=== PATIENT | male | born 1965 | race Caucasian/White ===

== ENCOUNTER 2023-08-18 10:00 | Outpatient (RCR) | payer OTHER, SELFPAY ==
--- NOTE | 2023-07-25 13:45 | HP.PTEVAL ---
Patient's Visit Information Visit Information Visit Information: ABDELRAHMAN SANCHEZ is a 58 year old M referred to Physical Therapy by Dr. Elia Lemos MD with a diagnosis of R glute pain. Date of Evaluation: 07/25/23 Physical Therapist: Gaston Arellano, PT, ATC Visit Plan Frequency: 2-3x /Week Duration: 4-6 Weeks Plan: Re-assess benefit of REIL. Core stab ex's and R LE stretching, postural edu, and HEP Subjective Subjective: Pt reports he has had a significant pain in his R glute region for approximately 1 1/2 years. Pt reports he has been trying to tolerate the pain, but it keeps getting worse. Pt reports he has had PT for this in the past which helped some, but never fixed him. 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 Pt reports he is constantly bending and twisting at work, and this is what causes him the most pain. Pt reports he had an MRI which revealed spinal stenosis and some herniated discs. Pt reports he has intermittent R LE tingling that extends all the way to his foot. Pt reports the only thing that helps is for him to sit and rest. Pt reports there have been some days that his pain is so bad that he has to go home and just rest. No PMHx of R glute pain prior to this episode. 1/10 pain while sitting here at rest, 10/10 pain when his pain is at its worst. Pt reports sleep difficulty secondary to pain. Pain R glute pain: Pain Intensity (Out of 10): 1 Pain Intensity Range: 10 Objective Objective: Neuro: B LE sensation is WNL to light touch. B patellar reflex= 2/3 MMT: B LE's are grossly 5/5 throughout L/S ROM: Pt is moderately to severely limited in all planes. Repeated movements: REIL 10x2 decreased pain. Special testing: pos piriformis and HS tightness. Balance/Special Test Scores Lower Extremity Functional Score: 32 Goals Goal 1:: Decrease LBP x 50% to aid with sleep Goal Time Frame: 4-6 Weeks Goal 2:: Decrease the frequency and intensity of R LE radiculopathy x 50% to aid with work tolerance Goal Time Frame: 4-6 Weeks Goal 3:: I with HEP Goal Time Frame: 4-6 Weeks Rehabilitation Potential Physical Therapy Diagnosis: Pt has R glute pain, R LE radiculopathy, and limited spinal ROM secondary to L/S disc derrangement Rehabilitation Potential: Good Anticipated Interventions Patient/Client Instruction: Educate patient on: Condition and Plan of Care For the Purpose of:: To improve self management Therapeutic Exercise to Include: Strength training, Body mechanics, Postural training, Dynamic Lumbar Stabilization and Alfreda Exercises For the Purpose of:: To decrease pain, To increase ROM and To improve muscle performance and motor function Text: Thank you for the opportunity to evaluate your patient. For Medicare and Medicare HMO plans, please review the plan of care and approve it. It will need to be FAXED BACK to us at [phone] for Medicare purposes. For Medicare only, by signing this I certify the plan of care. Please let me know if there are questions or concerns regarding this plan of care. Physician Signature: Date:
--- NOTE | 2023-11-30 15:55 | HP.PTDCSUM ---
Discharge Summary D/C summary: It has been my pleasure to treat ABDELRAHMAN SANCHEZ referred by Dr. Elia Lemos MD, with the diagnosis of R glute pain for a total of 5 visit(s). Discharge Date: Please see the following information for a summary of their discharge status. Subjective Subjective: Pt reports no improvements at this time. Pt notes his pain is severe after standing for an hour. Pain R glute pain: Pain Intensity (Out of 10): 2 Overall Improvement % Improvement: 0 Objective Objective/Function: LBP ranges from 2-10/10 and still prevents him from sleeping R LE radiculopathy has remained relatively unchanged. Pt is I with HEP Goals Goal 1:: Decrease LBP x 50% to aid with sleep Goal Progress: Not Progressing Goal 2:: Decrease the frequency and intensity of R LE radiculopathy x 50% to aid with work tolerance Goal Progress: Not Progressing Goal 3:: I with HEP Goal Progress: Goal Met Plan Plan: Hold PT at this time secondary to lack of progress. RTD D/C Information d/c sentence: If there are questions or concerns regarding this patient's physical therapy, please feel free to call me at [phone]. Thank you for the referral of this patient. Sincerely, Gaston Arellano, PT, ATC Balance/Gait/Functional tests Balance/Special Test Scores Lower Extremity Functional Score: 32 Improvement % Improvement: 0
--- NOTE | 2023-11-30 15:55 | HP.PT.NRP ---
Patient Information Patient Information: ABDELRAHMAN SANCHEZ was seen in my office for initial evaluation on 07/25/23. The following Plan of Care was established for this patient: POC Established Initial Frequency: 2-3x /Week Initial Duration: 4-6 Weeks Anticipated Interventions Patient/Client Instruction: Educate patient on: Condition and Plan of Care For the Purpose of:: To improve self management Therapeutic Exercise to Include: Strength training, Body mechanics, Postural training, Dynamic Lumbar Stabilization and Alfreda Exercises For the Purpose of:: To decrease pain, To increase ROM and To improve muscle performance and motor function Last Seen Last Seen: This patient was last seen in our office . Pertinent comments regarding their Physical therapy will appear below: At this point I will be discontinuing this patient from physical therapy. I would be happy to see this patient again in the future if found appropriate by the physician. Thank you! Gaston Arellano, PT, ATC Balance/Gait/Functional tests Balance/Special Test Scores Lower Extremity Functional Score: 32
== END 2023-08-18 19:00 | disposition home or self-care (01) ==
LOC: PT 10:00
PROVIDERS: PCP Family Medicine; Referring Provider Anesthesiology; Visit Provider Anesthesiology
DX: M79.10 Myalgia, unspecified site (principal); R25.2 Cramp and spasm
CPT/HCPCS: 97110; 97161; 97164

== ENCOUNTER → 2023-09-26 | Outpatient (CLI) | payer OTHER, SELFPAY ==
[2023-09-26 14:47] LABS: Amphetamine Urine VISTA NEGATIVE (<1000 ng/mL); Barbiturate Urine VISTA NEGATIVE (< 200 ng/mL); Benzodiazepine Urine VISTA NEGATIVE (< 200 ng/mL); Cocaine Urine VISTA NEGATIVE (< 300 ng/mL); Ecstacy Urine VISTA NEGATIVE (< 500 ng/mL); Methadone Urine VISTA NEGATIVE (< 300 ng/mL); PCP Urine VISTA NEGATIVE (< 25 ng/mL); THC Urine VISTA NEGATIVE (< 50 ng/mL); Vista UDS pH Range 6
== END | disposition home or self-care (01) ==
PROVIDERS: PCP Family Medicine; Referring Provider Anesthesiology; Visit Provider Anesthesiology
DX: M76.01 Gluteal tendinitis, right hip (principal); M47.27 Other spondylosis with radiculopathy, lumbosacral region
CPT/HCPCS: 80307